=== PATIENT | female | born 1975 | race Caucasian/White ===

== ENCOUNTER 2020-06-28 10:17 | Emergency (ER) | payer OTHER ==
[~2020-06-28] VITALS: Ht 152.4 cm; Wt 113.4 kg
== END 2020-06-28 11:55 | disposition home or self-care (01) ==
LOC: ED 10:17
DX: S20.211A Contusion of right front wall of thorax, initial encounter (principal); S40.021A Contusion of right upper arm, initial encounter; S40.022A Contusion of left upper arm, initial encounter; V03.90XA Pedestrian on foot injured in collision with car, pick-up truck or van, unspecified whether traffic or nontraffic accident, initial encounter
CPT/HCPCS: 71101; 99284-25

== ENCOUNTER 2022-07-02 14:02 | Emergency (ER) | payer OTHER ==
[~2022-07-02] VITALS: Ht 152.4 cm; Wt 97.5 kg
[~2022-07-02 14:02] MED LIST: GABAPENTIN300 MG PO; LISINOPRIL20 MG PO; OMEPRAZOLE20 MG PO
--- OUTSIDE RECORDS SUMMARY | 2022-07-02 14:06 | XMS ---
PreManage Notification: MAGALIE CHERRY Security Medical Lab Assistant Events 1 event(s) in the past 18 months Most recent security events: Elopement at [facility] 02/03/2021 19:04 - Other Details: PATIENT LWBS. CRITERIA MET - [facility] [place] CARE PROVIDERS DELILAH PAUL Current PHONE: Unknown RICARDO TERRELL Current PHONE: Unknown Alondra has no Care Guidelines for this patient. E.DElie VISIT COUNT ([address] [facility] TOTAL 2 NOTE: Visits indicate total known visits. ED/UCC VISIT TRACKING (12 MO.) 07/02/2022 14:03 [facility] [place] TYPE: Emergency COMPLAINT: - R LOWER ABD/GROIN PAIN 11/20/2021 11:31 [facility] [place] TYPE: Emergency COMPLAINT: - L EYE PAIN INPATIENT VISIT TRACKING (12 MO.) No inpatient visits to display in this time frame [id number]
== END 2022-07-02 15:30 | disposition left against medical advice (07) ==
LOC: ED 14:02
DX: Z53.21 Procedure and treatment not carried out due to patient leaving prior to being seen by health care provider (principal)
CPT/HCPCS: 81001; 84703; 87077; 87088; 87186

== ENCOUNTER 2024-01-20 19:40 | Emergency (ER) | payer OTHER ==
[~2024-01-20] VITALS: Ht 152.4 cm; Wt 93.4 kg
[~2024-01-20 19:40] MED LIST changes: +LAMOTRIGINE200 MG PO; +OMEPRAZOLE40 MG PO; +PREDNISONE20 MG PO; +TRAZODONE HCL50 MG PO; +VENTOLIN HFA18 GM INH
[2024-01-20] MEDS ORDERED: METFORMIN HCL500 M1 PO (19:54)
[2024-01-20] MEDS ORDERED: LACTATED RINGER'S 1,000 ML IV ONE (20:00)
[2024-01-20 20:06] VITALS: BP 171/97
== END 2024-01-20 20:06 | disposition left against medical advice (07) ==
LOC: ED 19:40
DX: E11.51 Type 2 diabetes mellitus with diabetic peripheral angiopathy without gangrene (principal); I70.213 Atherosclerosis of native arteries of extremities with intermittent claudication, bilateral legs; I10 Essential (primary) hypertension; F17.200 Nicotine dependence, unspecified, uncomplicated; Z88.0 Allergy status to penicillin; Z88.5 Allergy status to narcotic agent; Z79.899 Other long term (current) drug therapy; Z79.84 Long term (current) use of oral hypoglycemic drugs
CPT/HCPCS: 80053; 80307; 85025

== ENCOUNTER 2025-06-02 11:20 | Emergency (ER) | payer OTHER ==
[~2025-06-02] VITALS: Ht 152.4 cm; Wt 88.0 kg
[~2025-06-02 11:20] MED LIST changes: +METFORMIN HCL500 M1 PO
--- OUTSIDE RECORDS SUMMARY | 2025-06-02 11:27 | XMS ---
PreManage Notification: MAGALIE CHERRY Security [employer] Events No recent Security Events currently on file CRITERIA MET - Group Notification CARE PROVIDERS -, [facility] Dentist: Division Superintendent Current [employer] PHONE: [phone] -Tino- Dentist: Division Superintendent Current [facility] PHONE: [phone] [facility]: Multi-Specialty Current FAMILY PHONE: Unknown RICARDO TERRELL Physician Director Of Design: Medical Current PHONE: Unknown Alondra has no Care Guidelines for this patient. Jaret VISIT COUNT (12 MO.) 2 MARYAM Dan TOTAL 2 NOTE: Visits indicate total known visits. ED/UCC VISIT TRACKING (12 MO.) 06/02/2025 11:21 [facility] [place] TYPE: Emergency COMPLAINT: - VOMITING 01/16/2025 16:37 [facility] [place] TYPE: Emergency COMPLAINT: - ABDOM PAIN INPATIENT VISIT TRACKING (12 MO.) No inpatient visits to display in this time frame [id number]
[2025-06-02 12:36] LABS: BASOPHILS 0.3 % (0.1-1.2); EOSINOPHILS 1.9 % (0.7-5.8); LYMPHOCYTES 28.8 % (19.3-51.7); MCH 32.1 PG (25.6-32.2); MCHC 33.6 g/dL (32.2-35.5); MCV 95.3 fL (79.4-94.8); MONOCYTES 6.7 % (4.7-12.5); NEUTROPHILS 62.0 % (34.0-71.1); RBC 4.43 M/uL (3.93-5.22)
[2025-06-02] MEDS ORDERED: LIDOCAINE & ANTACID 35 ML BTL PO ONE (12:45)
[2025-06-02] MEDS ORDERED: ONDANSETRON 4 MG TAB ODT SL ONE (12:45)
[2025-06-02 12:58] LABS: ALT (SGPT) 49.0 U/L (14-59); AST (SGOT) 25.0 U/L (15-37); GLOMERULAR FILTRATION RATE,EST 82.0 mL/min (>60); PROTEIN, TOTAL 7.5 g/dL (6.4-8.2); UREA NITROGEN 17.0 mg/dL (7-18)
[2025-06-02 13:34] LABS: CORONAVIRUS COVID-19 AG NEGATIVE (NEGATIVE)
[2025-06-02] MEDS ORDERED: ONDANSETRON ODT4 MG PO (15:04)
[2025-06-02 15:20] VITALS: BP 113/73
== END 2025-06-02 15:20 | disposition home or self-care (01) ==
LOC: ED 11:20
PROVIDERS: Emergency Medicine
DX: A08.4 Viral intestinal infection, unspecified (principal); I10 Essential (primary) hypertension; E11.9 Type 2 diabetes mellitus without complications; F17.200 Nicotine dependence, unspecified, uncomplicated; Z79.899 Other long term (current) drug therapy; Z88.0 Allergy status to penicillin; Z88.5 Allergy status to narcotic agent
CPT/HCPCS: 36415; 80053; 83690; 85025; 96374; 99284-25; J2405